=== PATIENT | male | born 1985 | race Caucasian/White ===

== ENCOUNTER 2019-04-10 15:39 | Emergency (ER) | payer SELFPAY ==
[~2019-04-10 15:39] MED LIST: ACETAMINOPHEN-1 EAC1 PO; RANITIDINE HCL150 MG PO; ZITHROMAX250 MG PO; ZOFRAN ODT4 MG SL; ZOFRAN4 MG PO
[2019-04-11] MEDS ORDERED: FLOMAX0.4 MG PO (16:28)
[2019-04-11] MEDS ORDERED: NORCO 7.5-3251 EACH PO (16:28)
== END 2019-04-10 16:12 | disposition left against medical advice (07) ==
LOC: ED 15:39
DX: Z53.21 Procedure and treatment not carried out due to patient leaving prior to being seen by health care provider (principal)

== ENCOUNTER 2019-04-11 11:42 | Emergency (ER) | payer MEDICAID ==
[~2019-04-11] VITALS: Ht 172.7 cm; Wt 83.9 kg
--- OUTSIDE RECORDS SUMMARY | 2019-04-11 11:44 | XMS ---
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 PHONE: Unknown [facility] PHONE: Unknown Saurabh has no Care Guidelines for this patient. Joshua VISIT COUNT (12 MO.) [address] [place] [address] TOTAL 2 NOTE: Visits indicate total known visits. ED/UCC VISIT TRACKING (12 MO.) 04/11/2019 11:42 [facility] [place] TYPE: Emergency COMPLAINT: - FLANK PAIN 04/10/2019 15:40 [facility] [place] TYPE: Emergency COMPLAINT: - FLANK PAIN INPATIENT VISIT TRACKING (12 MO.) No inpatient visits to display in this time frame [email or web address]
[2019-04-11] MEDS ORDERED: FLOMAX0.4 MG PO (16:28)
[2019-04-11] MEDS ORDERED: NORCO 7.5-3251 EACH PO (16:28)
== END 2019-04-11 16:37 | disposition home or self-care (01) ==
LOC: ED 11:42
DX: N20.0 Calculus of kidney (principal); Z87.891 Personal history of nicotine dependence; Z80.0 Family history of malignant neoplasm of digestive organs; Z88.0 Allergy status to penicillin; Z87.442 Personal history of urinary calculi
CPT/HCPCS: 81001; 99284

== ENCOUNTER 2019-06-14 02:44 | Emergency (ER) | payer OTHER ==
[~2019-06-14] VITALS: Ht 172.7 cm; Wt 83.9 kg
--- OUTSIDE RECORDS SUMMARY | ~2019-06-14 | XMS | Clinical Summary ---
Demographics + + + | Address | [address] | | | [place] [address] | + + + | Home Phone | | + + + | Preferred Language | Unknown | + + + | Marital Status | Single | + + + | Episcopalian Affiliation | Unknown | + + + | Race | Unknown | + + + | Ethnic Group | Unknown | + + + Author + + + | Author | [facility] (Historical as of | | | 03-02-19) | + + + | Organization | [facility] (Historical as of | | | 03-02-19) | + + + | Address | Unknown | + + + | Phone | Unavailable | + + + Support + + + + + | Name | Relationship | Address | Phone | + + + + + | Manjeet Del Cid | ECON | [address] | | | | | [place], [place] | | | | | [address] | | + + + + + Care Team Providers + +------+ + | Care Fundraising Sale Representative Name | Role | Phone | + +------+ + PP | Unavailable | + +------+ + Allergies Not on File Current Medications Not on file Active Problems Not on file Social History + +-------+ +--------+------+ | Tobacco Use | Types | Packs/Day | Years | Date | | | | | Used | | + +-------+ +--------+------+ | Never Assessed | | | | | + +-------+ +--------+------+ + + + | Sex Assigned at | Date Recorded | | | | + + + | Not on file | | + + + Plan of Treatment Not on file Results Not on filefrom Last 3 Months"
--- OUTSIDE RECORDS SUMMARY | ~2019-06-14 | XMS | Clinical Summary ---
Demographics + + + | Address | [address] | | | [place] [address] | + + + | Home Phone | | + + + | Preferred Language | Unknown | + + + | Marital Status | Single | + + + | Denominational Affiliation | Unknown | + + + | Race | Unknown | + + + | Ethnic Group | Unknown | + + + Author + + + | Author | [facility] | | | and [place] | + + + | Organization | [facility] | | | and [place] | + + + | Address | Unknown | + + + | Phone | Unavailable | + + + Support + + +---------+ + | Name | Relationship | Address | Phone | + + +---------+ + | Manjeet Del Cid | ECON | Unknown | | + + +---------+ + Care Team Providers + +------+ + | Care Health Information Specialist Name | Role | Phone | + +------+ + PCP | Unavailable | + +------+ + Allergies Not on File Medications Not on file Active Problems Not [...] on file | | + + + + + + + | Job Start Date | Occupation | Industry | + + + + | Not on file | Not on file | Not on file | + + + + + + + + | Travel History | Travel Start | Travel End | + + + + + + | No recent travel history available. | + + Last Filed Vital Signs Not on file Plan of Treatment + + + + + | Health Maintenance | Due Date | Last Done | Comments | + + + + + | Vaccine: | | | | | Dtap/Tdap/Td (1 - | 4 | | | | Tdap) | | | | + + + + + | Vaccine: Influenza | | | | | (#1) | 9 | | | + + + + + Results Not on filefrom Last 3 Months"
--- OUTSIDE RECORDS SUMMARY | ~2019-06-14 | XMS | Encounter Summary ---
Demographics + + + | Address | [address] | | | [place] [address] | + + + | Home Phone | | + + + | Preferred Language | Unknown | + + + | Marital Status | Single | + + + | Sabianism Affiliation | Unknown | + + + | Race | Unknown | + + + | Ethnic Group | Unknown | + + + Author + + + | Author | [facility] | | | and [place] | + + + | Organization | [facility] | | | and [place] [...] Team Providers + +------+ + | Care Barrel Loader And Cleaner Name | Role | Phone | + +------+ + PCP | Unavailable | + +------+ + Encounter Details +--------+ + + + + | Date | Type | Department | Care Team | Description | +--------+ + + + + | 02/18/ | Hospital | [facility] | Conversion | Convulsions (HCC) | | 1992 | Encounter | CONVERSION DEP [address] | Transaction, | | | | | [address] | Provider Unknown | | | | | [place] | | | | | | [phone] | (Fax) | | | | | | | | +--------+ + + + + Social History + +-------+ +--------+------+ | Tobacco [...] recent travel history available. | + + documented as of this encounter Plan of Treatment Not on filedocumented as of this encounter Visit Diagnoses + + | Diagnosis | + + | Convulsions (HCC) Other convulsions | + + documented in this encounter"
--- OUTSIDE RECORDS SUMMARY | ~2019-06-14 | XMS | Encounter Summary ---
Demographics + + + | Address | [address] | | | [place] [address] | + + + | Home Phone | | + + + | Preferred Language | Unknown | + + + | Marital Status | Single | + + + | Samaritan Affiliation | Unknown | + + + | Race | Unknown | + + + | Ethnic Group | Unknown | + + + Author + + + | Author | [facility] | | | and [place] | + + + | Organization | [facility] | | | and [place] | [...] Team Providers + +------+ + | Care Sheet Metal Duct Worker Supervisor Name | Role | Phone | + [...] [place] | | | | | | [phone] | (Fax) | | | | | [...]
--- OUTSIDE RECORDS SUMMARY | ~2019-06-14 | XMS | Clinical Summary ---
Demographics + + + | Address | [address] | | | [place] [address] | + + + | Home Phone | | + + + | Preferred Language | Unknown | + + + | Marital Status | Single | + + + | Synagogue Affiliation | Unknown | + + + | Race | Unknown | + + + | Ethnic Group | Unknown | + + + Author + + + | Author | [facility] (Historical as of | | | 03-02-19) | + + + | Organization | [facility] (Historical as of | | | 03-02-19) [...] [place], [place] | | | | | [address] | | + + + + + Care Team Providers + +------+ + | Care Lifeline Representatives Name | Role | Phone | + [...]
--- OUTSIDE RECORDS SUMMARY | ~2019-06-14 | XMS | Clinical Summary ---
Demographics + + + | Address | [address] | | | [place] [address] | + + + | Home Phone | | + + + | Preferred Language | Unknown | + + + | Marital Status | Single | + + + | Baptist Affiliation | Unknown | + + + | Race | Unknown | + + + | Ethnic Group | Unknown | + + + Author + + + | Author | [facility] | | | and [place] | + + + | Organization | [facility] | | | and [place] [...] Team Providers + +------+ + | Care Export Manager Name | Role | Phone | + [...]
[~2019-06-14 02:44] MED LIST changes: +FLOMAX0.4 MG PO; +NORCO 7.5-3251 EACH PO
[2019-06-14] MEDS ORDERED: FLOMAX0.4 MG PO (04:13)
[2019-06-14] MEDS ORDERED: NORCO 5-325 TA1 EACH PO (04:13)
== END 2019-06-14 04:34 | disposition home or self-care (01) ==
LOC: ED 02:44
DX: N20.1 Calculus of ureter (principal); Z87.442 Personal history of urinary calculi; Z87.891 Personal history of nicotine dependence; Z88.0 Allergy status to penicillin
CPT/HCPCS: 81001; 96374; 96375; 99284-25; J1885; J2405; J7030

== ENCOUNTER 2019-09-06 11:35 | Emergency (ER) | payer OTHER ==
[~2019-09-06] VITALS: Ht 172.7 cm; Wt 83.9 kg
[~2019-09-06 11:35] MED LIST changes: +NORCO 5-325 TA1 EACH PO
[2019-09-06] MEDS ORDERED: AZITHROMYCIN250 MG PO (11:57)
[2019-09-06] MEDS ORDERED: PENICILLIN V P500 MG PO (15:42)
[2019-09-06] MEDS ORDERED: NORCO 7.5-3251 EACH PO (15:42)
== END 2019-09-06 16:10 | disposition home or self-care (01) ==
LOC: ED 11:35
DX: K08.89 Other specified disorders of teeth and supporting structures (principal); Z88.0 Allergy status to penicillin
CPT/HCPCS: 64400; 99283-25; A9270